=== PATIENT | female | born 1985 | race Hispanic/Latino ===

== ENCOUNTER 2017-02-05 10:30 | Inpatient (IN) | payer OTHER ==
[~2017-02-05] VITALS: Ht 165.1 cm; Wt 78.0 kg
[2017-02-05] MEDS ORDERED: IRON65TA PO (10:54)
[2017-02-05] MEDS ORDERED: PRENTAB52 PO (10:54)
[2017-02-05] MEDS ORDERED: FISH1000 PO (10:54)
[2017-02-11] MEDS ORDERED: BICITRA 30ML SOLN UDC PO ONE (06:00)
[2017-02-11] MEDS ORDERED: LR 1,000 ML IV ONE (06:00)
[2017-02-11] MEDS ORDERED: NALOXONE INJ 0.4 MG/1 ML VIAL (J2310) IV PRN ×2 (07:00)
[2017-02-11] MEDS ORDERED: NALBUPHINE HCL 10 MG/ML AMP (J2300) IV PRN ×2 (07:00→10:30)
[2017-02-11] MEDS ORDERED: ONDANSETRON 4MG/2ML VIAL (J2405) IV PRN ×2 (07:00→10:30)
[2017-02-11] MEDS ORDERED: LR 1,000 ML IV SCH ×2 (07:00→10:30)
[2017-02-11] MEDS ORDERED: METOCLOPRAMIDE INJ 10MG/2ML VIAL (J2765) IV PRN ×2 (07:00→10:30)
[2017-02-11 07:47] LABS: MEAN CORPUSCULAR HEMOGLOBIN 26.2 pg (27.0-33.0); MEAN CORPUSCULAR HGB CONC 33.2 g/dl (32.0-36.5); RED CELL DISTRIBUTION WIDTH 15.4 % (11.5-14.5); WHITE BLOOD COUNT 8.2 K/mm3 (4.0-10.0)
--- NOTE | 2017-02-11 08:26 | IPNPDOC ---
Text Note Date of Service The patient was seen on 02/11/17. NOTE Destiny is a 31yo with SIUP at 40wk who presents for scheduled today. Had originally desired TOLAC, but wanted to schedule RLTCS for convenience since her mother is only here a short time. She reports she has been jhony since yesterday, breathing through them now. No LOF, vb, feels good movement. 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 Cat I FHRT with ctx q3-5min. Patient re-counseled that her cervix is very favorable and she is excellent candidate for TOLAC. She was given time to consider and speak to her family. She desires tubal ligation and wants to proceed with RLTCS with BTL at this time. OR open and will proceed. Dr. Seymour Botello MD VS,Lainey, I+O VS, Lainey, I+O Laboratory Tests 02/11/17 04:23 Red Blood Count 4.34, Mean Corpuscular Volume 79.0 L, Mean Corpuscular Hemoglobin 26.2 L, Mean Corpuscular Hemoglobin Concent 33.2, Red Cell Distribution Width 15.4 H SEYMOUR BOTELLO MD February 11, 2017 08:26
[2017-02-11] MEDS ORDERED: ePHEDrine SULFATE 25 MG/5 ML(5MG/ML) SYRINGE As Ordered ONE (08:35)
[2017-02-11] MEDS ORDERED: OXYTOCIN INJ 10 UNITS/ML VIAL (J2590) As Ordered ONE (08:35)
[2017-02-11] MEDS ORDERED: PHENYLephrine HCL 500 MCG/5 ML (100MCG/ML) SYRINGE (J2370) As Ordered ONE (08:35)
[2017-02-11] MEDS ORDERED: MORPHINE PRES-FREE INJ 10 MG/10 ML VIAL (J2274) As Ordered ONE (08:35)
[2017-02-11] MEDS ORDERED: KETOROLAC 60 MG/2 ML VIAL (J1885) As Ordered ONE (08:36)
[2017-02-11] MEDS ORDERED: ONDANSETRON 4MG/2ML VIAL (J2405) As Ordered ONE (08:36)
[2017-02-11] MEDS ORDERED: MEASLES,MUMPS,RUBELLA VACCINE INJ (MMR-II) (90707) SC SCH (10:00)
[2017-02-11] MEDS ORDERED: PERCOCET 5MG/325MG TAB PO PRN ×3 (10:00→10:30)
[2017-02-11] MEDS ORDERED: MEPERIDINE INJ 25 MG/ML VIAL (J2175) IV PRN (10:30)
[2017-02-11] MEDS ORDERED: HYDROmorphone HCL 1 MG/ML SYRINGE (J1170) IV PRN (10:30)
[2017-02-11] MEDS ORDERED: fentaNYL 100 MCG/2 ML INJECTION (J3010) IV PRN (10:30)
[2017-02-11 11:15] VITALS: BP 109/56
[2017-02-11 11:45] VITALS: BP 112/61
[2017-02-11 12:45] VITALS: BP 108/60
--- NOTE | 2017-02-11 12:50 | RO ---
DATE OF OPERATION: 02/11/2017 INDICATION FOR OPERATION: Destiny is a 31-year-old G2, now P2-0-0.2, who has a history of a prior section and desired repeat section. She had previously stated a desire to have a trial of labor after previous ; and on the morning of the surgery, found to actually be in latent labor. Her cervix was 4/90/-1. However, on repeat counseling, she stated a very strong desire for a tubal ligation and that she and her had considered it at length, and discussed it extensively prior. I counseled her that we could do a tubal ligation 6 weeks after delivery very easily in the ambulatory setting, but she declined a trial of labor at that point and stated an adamant desire to have a repeat section with a tubal ligation. PREOPERATIVE DIAGNOSES: 1. Intrauterine at 40 weeks, declining a trial of labor. 2. Latent labor. 3. Satisfied parity. POSTOPERATIVE DIAGNOSES: 1. Intrauterine at 40 weeks, declining a trial of labor. 2. Latent labor. 3. Satisfied parity. 4. Now status post delivery and bilateral tubal ligation. MATERIAL FORWARDED TO THE LABORATORY FOR EXAMINATION: Right and left portions of fallopian tubes. SURGEON: Vikki Botello MD [employer] OPERATOR: Dr. Niko Ontiveros CLINICAL SERVICE: Obstetrics (OB) ANESTHESIA: Spinal DESCRIPTION AND FINDINGS: Female in OA presentation, scores were 9 and 9, weight 2818 grams or 6 pounds 3 ounces. Overall normal-appearing uterus, fallopian tubes, and ovaries. Some filmy adhesions of the fallopian tubes noted. Small simple-appearing cyst on the right ovary, and there was adhesion of the omentum to the anterior abdominal wall. INFECTION CLASSIFICATION: 2. ESTIMATED BLOOD LOSS: 500 mL. FLUIDS: 2 liters of lactated Ringer. URINE OUTPUT: 550 mL of yellow-colored urine. OPERATION PERFORMED: Repeat low transverse section. Bilateral tubal ligation. DESCRIPTION OF OPERATION: The patient was taken to the operating room. Spinal anesthesia was administered. Garcia catheter and bilateral sequential compression devices were placed. She received 2 grams of intravenous (IV) Ancef prophylactically. She was prepped and draped in normal sterile fashion in the dorsal supine position with a left lateral tilt. Time-out was performed to confirm patient name, date of , procedure, and indications. The team was in agreement. Spinal anesthesia was found to be adequate using an Allis clamp. A Pfannenstiel skin incision was made using with the scalpel and carried through to the underlying layer of fascia. The fascia was incised in the midline, and the incision was extended laterally with Jackson scissors. Superior and inferior aspects of the fascial incision were grasped with Andrew clamps, elevated, and the underlying rectus muscles were dissected off bluntly and sharply. Peritoneum was entered digitally, and the rectus muscles were in the midline. The peritoneal incision was extended superiorly and inferiorly with good visualization of the bladder. Bladder blade was inserted, and the vesicouterine peritoneum was identified, grasped with pickups, and entered sharply with the Metzenbaum scissors. The incision was extended laterally, and the bladder flap was created digitally. Bladder blade was reinserted, and the lower uterine segment was scored in a transverse fashion with the scalpel. The uterus was entered bluntly, and the incision was extended with traction with clear amniotic fluid noted. Bladder blade was removed, and the infant's head was elevated to the level of the incision. Fundal pressure was applied, the head was delivered atraumatically in the occipitoanterior (OA) position. Anterior shoulder, posterior shoulder, and corpus were delivered without difficulty. Nose and mouth were suctioned with bulb suction, and the cord was clamped times two and cut. The infant was handed off to the awaiting team. Placenta was removed with traction on the cord and uterine massage, and the uterus was exteriorized and cleared of all clot and debris. The uterine incision was repaired with #0 Vicryl suture in a running locking fashion, and a second layer of 0 Monocryl suture was used to close the hysterotomy in an imbricating fashion. The uterine incision was inspected, and hemostasis was noted. At that time, the right and left fallopian tubes were visualized without abnormalities other than some slight filmy adhesions. Before we began the tubal ligation, we again confirmed verbally that the patient still desired the procedure, and she stated that she did. Garnet tubal ligation was performed on the left, followed by the right fallopian tube, using 0 plain gut suture. Transected portions of the fallopian tubes were sent to pathology. The posterior cul-de-sac was irrigated, and the uterus was then returned to the abdomen. The gutters were cleared of all clot, and hemostasis noted. The tubal ligation sites were reinspected and noted to be completely hemostatic. The rectus muscle was reapproximated with two figure-of-8 stitches using 0 Vicryl suture, and the fascia was reapproximated with 0 Vicryl suture in a running fashion. Subcutaneous tissue was copiously irrigated. Matilda's fascia was reapproximated using 3-0 Vicryl suture in a running fashion. The skin edges were reapproximated using three subdermal interrupted stitches using 3-0 Vicryl suture, followed by a running subcuticular stitch using 4-0 Monocryl suture. The incision was cleaned using a wet lap and dried with a dry lap. Steri-Strips were applied in the usual fashion perpendicular to the Pfannenstiel incision. Telfa was layered on top of the Steri-Strips, followed by a dry sterile towel. Surgical drapes were removed, sterile towel was removed, and a pressure dressing was applied to the entire surgical incision. The vagina was cleared of all blood clot without active bleeding noted. The fundus was firm at U-1 cm. All counts were correct times two. The procedure was without complications, and the patient tolerated the procedure well. The patient was taken to the recovery room on labor and delivery in stable condition. SONIYA
[2017-02-11 13:45] VITALS: BP 109/54
[2017-02-11] MEDS: KETOROLAC 30 MG/ML VIAL (J1885) IV SCH ×2 (14:48→22:13)
[2017-02-11] MEDS ORDERED: RHOGAM 300 MCG (1500 IU) INJ (J2790) IM SCH (15:00)
[2017-02-11 18:20] VITALS: BP 98/60
[2017-02-11 22:00] VITALS: BP 117/57
[2017-02-11] MEDS: DOCUSATE SODIUM 100 MG CAP PO SCH (22:13)
[2017-02-12 02:30] VITALS: BP 96/50
[2017-02-12] MEDS: KETOROLAC 30 MG/ML VIAL (J1885) IV SCH ×2 (04:06→10:03)
--- NOTE | 2017-02-12 05:55 | IPNPDOC ---
Progress Note Date of Service The patient was seen on 02/12/17 at 05:52. Progress Note Post-Op Day 1 Destiny is a 31yo [id number] doing well on post-op day 1 s/p uncomplicated RLTCS with BTL indicated for history of prior section declining TOLAC as well as satisfied parity at 40wk. She is without problem. Lochia minimal, spontaneously voiding and ambulating without difficulty. Tolerating regular diet. Denies f/c/n/v/SOB/CP/HOLLY/abdominal pain. Vitals wnl, afebrile Exam: General: WDWN, NAD, resting comfortably Cardiac: S1S2 present, no murmur Lungs: CTAB without wheeze/crackles Abdomen: soft, NTTP, fundus firm u-2cm, pfannensteil covered by dry dressing Extremities: no tenderness of calves bilaterally Labs: Pre-op H/H: 11.4/34.3 Assessment: Destiny is a 31yo [id number] doing well on post-op day 1 s/p uncomplicated RLTCS with BTL indicated for history of prior section declining TOLAC as well as satisfied parity at 40wk. Vitals wnl, benign exam. No e/o infection, hemodynamically stable. Plan: -routine post-op/post- care -Regular diet -motrin and percocet prn pain -Encourage ambulation and and use of IS -CBC pending for today -likely discharge home tomorrow Dr. Seymour Botello MD [facility] VS, I&O, 24H, Fishbone Vital Signs/I&O Vital Signs Date Time Temp Pulse Resp B/P (MAP) Pulse Ox O2 Delivery O2 Flow Rate FiO2 02/12/17 02:30 98.2 71 16 96/50 (65) 95 Room Air I&O- Last 24 Hours up to 6 AM 02/12/17 06:00 Output Total 2450 ml Balance -2450 ml SEYMOUR BOTELLO MD February 12, 2017 05:55
[2017-02-12 06:04] VITALS: BP 94/53
[2017-02-12 07:12] LABS: MEAN CORPUSCULAR HEMOGLOBIN 26.6 pg (27.0-33.0); MEAN CORPUSCULAR HGB CONC 33.4 g/dl (32.0-36.5); MEAN CORPUSCULAR VOLUME 79.6 fl (80.0-96.0); RED CELL DISTRIBUTION WIDTH 15.5 % (11.5-14.5); WHITE BLOOD COUNT 8.5 K/mm3 (4.0-10.0)
[2017-02-12] MEDS: DOCUSATE SODIUM 100 MG CAP PO SCH ×2 (09:09→21:00)
[2017-02-12] MEDS: PRENATAL VITAMIN TAB PO SCH (09:09)
[2017-02-12 10:00] VITALS: BP 113/55
[2017-02-12] MEDS: IBUPROFEN 800 MG TAB PO SCH (17:33)
[2017-02-12 18:00] VITALS: BP 104/54
[2017-02-12 22:08] VITALS: BP 115/57
[2017-02-13] MEDS: IBUPROFEN 800 MG TAB PO SCH ×2 (02:39→08:39)
[2017-02-13 06:39] VITALS: BP 118/58
[2017-02-13] MEDS: PRENATAL VITAMIN TAB PO SCH (07:49)
[2017-02-13] MEDS: DOCUSATE SODIUM 100 MG CAP PO SCH (07:51)
[2017-02-13] MEDS ORDERED: OXYC1TAB23 PO (11:37)
[2017-02-13] MEDS ORDERED: COLA100C3 PO (11:37)
[2017-02-13] MEDS ORDERED: IBUP-1114 PO (11:37)
[2017-02-13] MEDS ORDERED: ACET50TA PO (11:37)
--- NOTE | 2017-02-13 12:19 | IPNPDOC ---
Progress Note Date of Service The patient was seen on 02/13/17 at 12:17. Progress Note Post-Op Day 2 Destiny is a 31yo [id number] doing well on post-op day 2 s/p uncomplicated RLTCS with BTL indicated for history of prior section declining TOLAC as well as satisfied parity at 40wk. She is without problem. Lochia minimal, spontaneously voiding and ambulating without difficulty. Tolerating regular diet. Denies f/c/n/v/SOB/CP/HOLLY/abdominal pain. Vitals wnl, afebrile Exam: General: WDWN, NAD, resting comfortably Cardiac: S1S2 present, no murmur Lungs: CTAB without wheeze/crackles Abdomen: soft, NTTP, fundus firm u-2cm, pfannensteil well approximated with steri strips overlying- no erythema/induration/drainage Extremities: no tenderness of calves bilaterally Labs: Pre-op H/H: 11.4/34.3 Post-op H/H: 9.4/28.2 Assessment: Destiny is a 31yo [id number] doing well on post-op day 2 s/p uncomplicated RLTCS with BTL indicated for history of prior section declining TOLAC as well as satisfied parity at 40wk. Vitals wnl, benign exam. No e/o infection, hemodynamically stable. Meeting all milestones for discharge. Plan: -discharge to home -has home meds: motrin, percocet, lanolin, miralax -will follow up with me in 2 weeks for routine post-op visit Dr. Seymour Botello MD [facility] VS, I&O, 24H, Fishbone Vital Signs/I&O Vital Signs Date Time Temp Pulse Resp B/P (MAP) Pulse Ox O2 Delivery O2 Flow Rate FiO2 02/13/17 06:39 97.8 77 18 118/58 (78) 02/12/17 10:00 98 02/12/17 02:30 Room Air SEYMOUR BOTELLO MD February 13, 2017 12:19
--- NOTE | 2017-02-13 12:25 | DS.PDOC ---
Discharge Summary General Date of Admission February 11, 2017 at 03:57 Date of Discharge February 13, 2017 Attending Physician: SEYMOUR BOTELLO MD Discharge Summary PROCEDURES PERFORMED DURING STAY: Repeat low transverse section with bilateral tubal ligation ADMITTING DIAGNOSES: 1. Term with history prior section 2. Latent labor declining trial of labor after section 3. Satisfied parity DISCHARGE DIAGNOSES: 1. Term with history prior section 2. Latent labor declining trial of labor after section 3. Satisfied parity 4. Delivered and status post bilateral tubal ligation COMPLICATIONS/CHIEF COMPLAINT: History Of Prior Section, Satisfied Parity HISTORY OF PRESENT ILLNESS/HOSPITAL COURSE: Destiny is a 31 year old [id number] doing well on post-operative day 2 status post uncomplicated repeat low transverse section with bilateral tubal ligation indicated for history of prior section declining trial of labor as well as satisfied parity at 40 weeks gestation. At time of discharge, vitals are normal with benign exam. No evidence of infection, hemodynamically stable. Meeting all milestones for discharge. DISCHARGE MEDICATIONS: motrin, percocet, lanolin, miralax ALLERGIES: Please see below. PHYSICAL EXAMINATION ON DISCHARGE: Vitals wnl, afebrile Exam: General: WDWN, NAD, resting comfortably Cardiac: S1S2 present, no murmur Lungs: CTAB without wheeze/crackles Abdomen: soft, NTTP, fundus firm u-2cm, pfannensteil well approximated with steri strips overlying- no erythema/induration/drainage Extremities: no tenderness of calves bilaterally LABORATORY DATA: Pre-op H/H: 11.4/34.3 Post-op H/H: 9.4/28.2 ACTIVITY: vaginal rest for 6 weeks, no heavy lifting greater than weight of baby DIET: regular DISPOSITION: home DISCHARGE INSTRUCTIONS: -Keep incision clean and dry -return precautions: fevers, chills, abdominal pain increasing, foul smelling discharge, redness of breasts with pain and fevers, drainage from incision -follow up in 2 weeks for incision check DISCHARGE CONDITION: Stable TIME SPENT ON DISCHARGE: Greater than [address] Seymour Botello MD [facility] Vital Signs/I&Os Vital Signs Date Time Temp Pulse Resp B/P (MAP) Pulse Ox O2 Delivery O2 Flow Rate FiO2 02/13/17 06:39 97.8 77 18 118/58 (78) 02/12/17 10:00 98 02/12/17 02:30 Room Air Discharge Medications Scheduled (Iron) 325 Mg Tab, 325 MG PO DAILY, (Reported) Docusate Sodium (Colace) 100 Mg Cap, 100 MG PO BID, (Reported) Fish Oil (Fish Oil) 1,000 Mg Cap, 1,000 MG PO DAILY, (Reported) Multivitamins/ (Prenatabs FA) 1 Tab Tab, 1 TAB PO DAILY, (Reported) Scheduled PRN Acetaminophen (Mapap) 500 Mg Tab, 1,000 MG PO Q6HP PRN for ABDOMINAL PAIN, ( Reported) Ibuprofen (Ibuprofen) 400 Mg Tab, 800 MG PO Q8HP PRN for ABDOMINAL PAIN, ( Reported) Oxycodone/Acetaminophen (Oxycodone/Acetaminophen 5-325 mg) 1 Tab Tab, 1 TAB PO Q4HP PRN for ABDOMINAL PAIN, (Reported) Allergies Coded Allergies: No Known Allergies (Unverified , 02/05/17) SEYMOUR BOTELLO MD February 13, 2017 12:25
== END 2017-02-13 13:00 | disposition home or self-care (01) | DRG 766 ==
LOC: M LDI 02-11 03:57 → M OBS 02-11 04:17
PROVIDERS: ADMIT Obstetrics & Gynecology; ATTEND Obstetrics & Gynecology
PROC: 0UB70ZZ Excision of Bilateral Fallopian Tubes, Open Approach (ICD-10-PCS; 2017-02-11)
PROC: 10D00Z1 Extraction of Products of Conception, Low, Open Approach (ICD-10-PCS; principal; 2017-02-11 07:30)
DX: O34.211 Maternal care for low transverse scar from previous cesarean delivery (principal); Z37.0 Single live birth; Z3A.40 40 weeks gestation of pregnancy; Z30.2 Encounter for sterilization; Z79.899 Other long term (current) drug therapy; O34.83 Maternal care for other abnormalities of pelvic organs, third trimester; N83.201 Unspecified ovarian cyst, right side; N73.6 Female pelvic peritoneal adhesions (postinfective)